=== PATIENT | female | born 1975 | race Caucasian/White ===

== ENCOUNTER 2019-11-08 13:12 | Observation (INO) | payer SELFPAY ==
[2019-11-08 16:53] VITALS: BMI 34.4
--- NOTE | 2019-11-08 18:45 | ULT ---
PELVIC ULTRASOUND: 11/08/19 Transabdominal and endovaginal ultrasound of pelvis performed. INDICATIONS: Menorrhagia. FINDINGS: The uterus is enlarged and heterogeneous. Uterine measurements recorded at 12.6 x 7.3 x 8.5 cm. The h eterogeneity suggests fibroids within the myometrium. Two areas of probable fibroids measure 1.5 to 2 .0 cm each in the myometrium. The endometrial stripe is mildly thickened measured at 1.6 cm. Both ovaries are identified. Color Doppler and spectral analysis demonstrates blood flow to both ovar ies. There is a 3.0 cm cyst on the right ovary and there is a 5.0 cm cyst from the left ovary. IMPRESSION: 1. Enlarged heterogeneous uterus suggesting myometrial fibroids. 2. Mildly thickened endometrium. 3. Bilateral ovarian cysts. POS: AGW
[2019-11-08] MEDS ORDERED: Acetaminophen 325 MG TAB PO PRN (19:14)
[2019-11-08 19:58] LABS: Hemoglobin 7.8 g/dL (12.0-16.0)
--- NOTE | 2019-11-08 21:11 | HP ---
PRIMARY CARE PHYSICIAN: Dr. Schneider CHIEF COMPLAINT: "I passed out." HISTORY OF PRESENT ILLNESS: The patient is a pleasant 44-year-old female with past medical history of significant vaginal bleeding. She presented to the ER in [place] today after a presyncopal episode at work. She states that she had just gotten out of a meeting and was walking and got lightheaded. Her daughter grabbed her and assisted her to a seated position. There was no actual fall or trauma involved. She denied any chest pain, shortness of breath, dizziness, abdominal pain, contact with sick persons. The patient does state that last month she had a menses that lasted 30 days. She went and saw her primary care physician who started her on an iron supplement and then referred her to Gynecology. The patient was unable to go due to financial restraints. This past month, her menses lasted approximately 6 days and ended about 5 days ago. She is not currently bleeding, but has felt run down and fatigued since that time. She has been taking her iron supplements since then. In the [place] ER, they completed lab work, which showed she was anemic and a urine test, which was negative. They started a unit of blood and transferred her to the medical floor as a direct admit. PAST MEDICAL HISTORY: Includes 8 pregnancies, epilepsy. PAST SURGICAL HISTORY: Tubal ligation. ALLERGIES: NO KNOWN DRUG ALLERGIES. MEDICATIONS: On iron supplement. SOCIAL HISTORY: The patient lives at home with 4 children with a combination of grandchildren and her children. She denies any alcohol or drug use. She is a former smoker. FAMILY HISTORY: Mom had colorectal cancer. Sister had leukemia, and dad had diabetes. REVIEW OF SYSTEMS: All other review of systems are negative unless noted in the HPI. PHYSICAL EXAMINATION: VITAL SIGNS: Temperature 98.5, pulse 62, respiratory rate 18, O2 saturation 99 % on room air, blood pressure 128/61. GENERAL: The patient appears fatigued. HEENT: Head is atraumatic, normocephalic. Eyes, PERRLA. Extraocular muscles intact. No nystagmus. NECK: Trachea is midline. No lymphadenopathy. RESPIRATORY: Clear to auscultation bilaterally. Normal chest rise. No rhonchi. No wheezes. No rales. CARDIOVASCULAR: Regular rate and rhythm. No murmurs, no gallops. No rubs. ABDOMEN: Soft, nontender, nondistended. No guarding. EXTREMITIES: Posterior tibial pulse present. Pedal pulse present. No edema. PSYCH: Normal affect. Normal behavior. SKIN: Pale, warm, and dry. LABORATORY DATA AND IMAGING STUDIES: Pelvic ultrasound has been ordered along with lab work including a repeat H and H. IMPRESSION AND PLAN: The patient had a presyncopal episode today with anemia of acute blood loss. She received 1 unit of blood during transfer from [place]. We will do a followup hemoglobin and hematocrit to see if she was able to improve any. Due to her fatigue and low hemoglobin she will be receiving another unit of blood. Gynecology has been consulted and we appreciate their input. Venous thromboembolism prophylaxis will be sequential compression devices. Pepcid will be GI prophylaxis. The patient wishes to be a full code. Her surrogate decision maker is her , John. The patient has been discussed with Dr. Singh. Job ID: [id number] MTDD
--- NOTE | 2019-11-08 21:30 | CON ---
DATE OF CONSULTATION: 11/08/2019 TIME OF SERVICE: 2015 hours. REASON FOR CONSULTATION: Anemia with menorrhagia. HISTORY OF PRESENT ILLNESS: Ms. Pathak is a 44-year-old, 8, para 8, who has approximately 9-month history of intermittent menometrorrhagia. She denies severe dysmenorrhea. She denies history of significant abnormal Pap. She presented to the [facility] [facility] with weakness and dizziness and was noted to be severely iron deficiency anemic. Of note, the patient is not currently on her menses. 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 Denies history of STDs. Reports history of occasional abnormal Pap in the past, but none recently. Denies hormone therapy in the past. PAST MEDICAL HISTORY: Significant for seizure disorder, uncertain etiology. The patient reports she only occasionally has a seizure and has not had one in over a year. She says it occurs with stress. She says she does not take antiseizure medication because it makes her feel foggy. PAST SURGICAL HISTORY: Tubal ligation. MEDICATIONS: None. SOCIAL HISTORY: The patient is a former tobacco user. Denies alcohol or IV drug use. FAMILY HISTORY: Noncontributory. REVIEW OF SYSTEMS: Noncontributory. PHYSICAL EXAMINATION: GENERAL: White female, resting comfortably. VITAL SIGNS: Temperature 98.5, pulse 62, respirations 18, blood pressure 128/61. HEENT: Within normal limits. LUNGS: Clear to auscultation bilaterally. HEART: Regular rhythm. ABDOMEN: Soft and nontender without rebound or guarding. No CVA tenderness is noted. Perineum is dry. Pelvic exam deferred. EXTREMITIES: No clubbing, cyanosis, or edema. LABORATORY DATA: The patient's hematocrit in [place] pre-transfusion was 24%. Post transfusion here in [place] is 26.3%. Pelvic ultrasound was performed. Radiology interpretation is slightly thickened endometrium at 16 mm, inhomogeneous uterus measuring 12.6 x 7.3 x 8.5 cm with areas consistent with probable fibroids of 1.5 cm each in the myometrium. Both adnexa are identified, normal flow, normal size, except for a small simple cyst of 3 cm on the right, 5 cm on the left, no significant free fluid. IMPRESSION: Menometrorrhagia, leading to severe iron deficiency anemia. No active bleeding at this time. PLAN: Discussed with the patient options. Medical management with progestins and oral TXA would be reasonable. However, the patient desires definitive surgical management. The cost of oral TXA would exceed the patient's current budget, she is currently uninsured. Obviously, uninsured status makes obtaining funding for hysterectomy somewhat problematic. We will discharge the patient home on Provera 10 mg b.i.d. to take for 15 days with initiation of heavy menses. The patient is to continue with the iron that she has been prescribed previously. The patient is to follow up in approximately 4 weeks with myself at [facility] [place]. Consultation with Case Management has been ordered, suggesting that they facilitate the patient's engagement with [employer]. The patient is uninsured, but employed and should be a good candidate for [employer] in [facility] to intervene and provide funding for hysterectomy. Once funding is obtained, we would proceed with total laparoscopic hysterectomy, bilateral salpingectomy plus or minus salpingo-oophorectomy. We will see the patient in office and follow up with the endometrial biopsy at outpatient encounter. Job ID: [id number]
[2019-11-08] MEDS: medroxyPROGESTERone Acetate 2.5 MG TAB PO SCH (22:16)
[2019-11-08] MEDS: Famotidine 20 MG TAB PO SCH (22:16)
[2019-11-08] MEDS ORDERED: Melatonin 3 MG TAB PO PRN ×2 (22:24→22:26)
[2019-11-09 04:26] LABS: Anion Gap 10 mmol/L (10-20); BUN (Urea Nitrogen) 11 mg/dL (7.0-18.7); Calc. Creatinine Clearance 145 mL/min (70-130); Calcium 8.5 mg/dL (7.8-10.44); Carbon Dioxide 23 mmol/L (22-29); Chloride 109 mmol/L (98-107); Estimated GFR-MDRD 90; Glucose 93 mg/dL (70-105); Potassium 4.2 mmol/L (3.5-5.1); Sodium 138 mmol/L (136-145)
[2019-11-09 04:43] LABS: #Basophils 0.1 thou/uL (0.0-0.2); #Eosinphils 0.1 thou/uL (0.0-0.7); #Lymphocytes 2.3 thou/uL (1.20-3.40); #Monocytes 0.7 thou/uL (0.11-0.59); #Neutrophils 4.9 thou/uL (1.40-6.50); %Basophils 0.7 % (0.0-1.0); %Eosinophils 1.6 % (0.0-10.0); %Lymphocytes 28.5 % (21.0-51.0); %Monocytes 8.6 % (0.0-10.0); %Neutrophils 60.6 % (42.0-75.0); Anisocytosis MODERATE=16-30 cells (100X) (0-5/hpf); Hemoglobin 9.1 g/dL (12.0-16.0); Hypochromia MODERATE=16-30 cells (100X) (0-5/hpf); Large Platelets SLIGHT; MDiff Complete? YES; Mean Corpuscular HGB CONC 30.4 g/dL (32.0-36.0); Mean Corpuscular Hemoglobin 19.8 pg (27.0-31.0); Microcytosis MODERATE=15-30 cells (100X) (0-5/hpf); Platelet Count 143 thou/uL (130-400); Platelet Morphology Comment Appears Adequate; RBC Distribution Width 25.9 % (11.5-14.5); Red Blood Cell (RBC) Count 4.62 mill/uL (4.20-5.40); Tear Drops SLIGHT = 2-5 cells (100X) (0-1/hpf); White Blood Cell (WBC) Count 8.2 thou/uL (4.8-10.8)
[2019-11-09] MEDS: medroxyPROGESTERone Acetate 2.5 MG TAB PO SCH (08:31)
[2019-11-09] MEDS: Famotidine 20 MG TAB PO SCH (08:32)
[2019-11-09 08:44] VITALS: BP 106/51; TEMP 98.4
--- NOTE | 2019-11-09 15:44 | DIS ---
DATE OF ADMISSION: 11/08/2019 DATE OF DISCHARGE: 11/09/2019 PRIMARY CARE PROVIDER: Nelda Schneider MD DISCHARGE DIAGNOSES: 1. Symptomatic anemia. 2. Anemia of acute blood loss. 3. Microcytic anemia. CONDITION: Condition of the patient on the day of discharge: Stable. I assessed Ms. Pathak on the day of discharge. She denies any chest pain or shortness of breath. Vital signs are stable. S1 and S2 are heard, regular. Lungs are clear to auscultation bilaterally. CONSULTATIONS DURING THIS HOSPITALIZATION: Gynecology, Dr. Bunn. HOSPITAL COURSE: Ms. Pathak is a pleasant 44-year-old lady, who was admitted to [facility] on November 08, 2019, for symptomatic anemia secondary to heavy vaginal bleeding. Pelvic ultrasound showed enlarged heterogeneous uterus suggesting myometrial fibroids, mildly thickened endometrium and bilateral ovarian cysts. She was seen by Dr. Bunn. She was started on Provera. She is advised to follow up with Dr. Bunn in 4 weeks. She is advised to follow up with [employer] for funding for hysterectomy. Once the funding is obtained, she can proceed with total laparoscopic hysterectomy, bilateral salpingectomy, plus or minus salpingo-oophorectomy. Gynecology Service will also follow up for endometrial biopsy at outpatient encounter. On the day of discharge, she has an unremarkable Chem-7. White count 8200, hemoglobin 9.1, and platelet count 143,000. Many thanks for allowing me to participate in your patient's care. Please feel free to contact me with any questions or concerns. POST-ACUTE CARE FOLLOWUP: With primary care provider in [address] Bunn in 1 month. DIET: Regular. ACTIVITY: No restrictions. DISCHARGE DESTINATION: Home. ADDENDUM: DISCHARGE MEDICATIONS: Include Provera 10 mg 2 times a day for 15 days. The patient is also advised to resume her iron supplements. Job ID: [id number]
== END 2019-11-09 12:35 | disposition home or self-care (01) ==
LOC: INTOOBSV 14:52 → ONC 14:52
PROVIDERS: ADMIT Internal Medicine; ATTEND Internal Medicine
DX: D62 Acute posthemorrhagic anemia (principal); N83.201 Unspecified ovarian cyst, right side; N83.202 Unspecified ovarian cyst, left side; N85.00 Endometrial hyperplasia, unspecified; G40.909 Epilepsy, unspecified, not intractable, without status epilepticus; Z79.899 Other long term (current) drug therapy
CPT/HCPCS: 36415; 76856; 80048; 85025; 86850; 86900; 86901; G0378; P9016